=== PATIENT | female | born 1980 | race Caucasian/White ===

== ENCOUNTER → 2017-03-19 | Outpatient (CLI) | payer OTHER ==
[~2017-03-19] MED LIST: ALPR-475 PO; CALC0.5C PO; CALC600T23 PO; HYDR-3240 PO; LEVO125T PO; METH5TAB6 PO; SERT100T PO; SERT50TA PO
== END ==
LOC: STAR 16:00
PROVIDERS: ATTEND Surgery
DX: Z02.9 Encounter for administrative examinations, unspecified (principal)

== ENCOUNTER 2017-03-23 06:32 | Inpatient (IN) | payer MEDICAID, OTHER ==
[~2017-03-23] VITALS: Ht 152.4 cm; Wt 64.5 kg
[~2017-03-23 06:32] MED LIST changes: -CALC0.5C PO; -CALC600T23 PO; -HYDR-3240 PO; -LEVO125T PO
[2017-03-23] MEDS ORDERED: LACTATED RINGERS 1,000 ML IV SCH (07:31)
[2017-03-23 07:32] VITALS: BP 120/84
[2017-03-23 07:48] LABS: HCG UR LOT HCG7030192
[2017-03-23] MEDS ORDERED: MIDAZOLAM 1 MG/ML, 2ML ONE (07:48)
[2017-03-23] MEDS ORDERED: FENTANYL PF 250 MCG/5ML ONE (07:48)
[2017-03-23] MEDS ORDERED: ONDANSETRON 2MG/ML, 2ML ONE (07:49)
[2017-03-23] MEDS ORDERED: SUCCINYLCHOLINE 20 MG/ML, 10ML ONE (07:49)
[2017-03-23] MEDS ORDERED: CEFAZOLIN 1,000 MG ONE (07:49)
[2017-03-23] MEDS ORDERED: DEXAMETHASONE 4 MG/ML, 1ML ONE (07:49)
[2017-03-23] MEDS ORDERED: PROPOFOL 10 MG/ML, 20ML ONE (07:49)
[2017-03-23] MEDS ORDERED: LIDOCAINE 1%, 2ML SQ PRN (08:00)
[2017-03-23 08:10] LABS: HCG UR OBC PASS
[2017-03-23] MEDS ORDERED: SCOPOLAMINE 1MG PATCH TD ONE ×2 (08:42)
[2017-03-23] MEDS ORDERED: LIDOCAINE-MPF 2% ,5ML ONE ×2 (09:15)
[2017-03-23] MEDS ORDERED: EPHEDRINE 50 MG/ML, 1ML ONE (09:18)
[2017-03-23] MEDS ORDERED: MEPERIDINE/PF 25MG/0.5ML IVPush PRN (09:30)
[2017-03-23] MEDS ORDERED: PROMETHAZINE 25 MG/ML, 1ML IV PRN (09:30)
[2017-03-23] MEDS ORDERED: METOCLOPRAMIDE 5 MG/ML, 2ML IV PRN (09:30)
[2017-03-23] MEDS ORDERED: OXYcodone 5 MG/5 ML ORAL.SOL UDC PO PRN (09:30)
[2017-03-23] MEDS ORDERED: ONDANSETRON 2MG/ML, 2ML IVPush PRN (09:30)
[2017-03-23] MEDS ORDERED: ACETAMINOPHEN 325 MG TABLET PO PRN (09:30)
[2017-03-23] MEDS ORDERED: LORazepam 2 MG/ML, 1ML IVPush PRN (09:30)
[2017-03-23] MEDS ORDERED: LABETALOL 5MG/ML, 20ML IV PRN (09:30)
[2017-03-23] MEDS ORDERED: DIAZEPAM 5 MG/ML, 2ML IVPush PRN (09:30)
[2017-03-23] MEDS ORDERED: HYDROmorphone 1 MG/ML, 1ML IV PRN (09:30)
[2017-03-23] MEDS ORDERED: MIDAZOLAM 1 MG/ML, 2ML IV PRN (09:30)
[2017-03-23] MEDS ORDERED: hydrALAzine 20 MG/ML, 1ML IV PRN (09:30)
[2017-03-23] MEDS ORDERED: ALBUTEROL/IPRATROPIUM 2.5MG/0.5MG, 3 ML NPPB PRN (09:30)
[2017-03-23] MEDS ORDERED: MEPERIDINE/PF 25MG/0.5ML ONE (10:03)
[2017-03-23] MEDS ORDERED: FENTANYL PF 100 MCG/2ML ONE (10:03)
[2017-03-23] MEDS ORDERED: ACETAMINOPHEN 650 MG/20.3 ML UDC ONE (10:07)
[2017-03-23] MEDS ORDERED: OXYcodone 5 MG/5 ML ORAL.SOL UDC ONE (10:08)
[2017-03-23] MEDS: FENTANYL PF 100 MCG/2ML IV PRN ×2 (10:13→10:21)
[2017-03-23] MEDS ORDERED: HYDROmorphone 1 MG/ML, 1ML ONE (10:27)
[2017-03-23] MEDS: HYDROcodone/APAP 5/325 TABLET PO PRN ×3 (13:25→21:19)
[2017-03-23] MEDS: LACTATED RINGERS 1,000 ML IV SCH (13:25)
[2017-03-23 13:29] VITALS: BP 122/47
[2017-03-23] MEDS ORDERED: morphine SULFATE 10 MG/ML, 1ML IV PRN (13:30)
[2017-03-23] MEDS ORDERED: ONDANSETRON 2MG/ML, 2ML IV PRN (13:30)
[2017-03-23 18:41] VITALS: BP 109/55
[2017-03-24 00:21] VITALS: BP 103/58
[2017-03-24] MEDS: LACTATED RINGERS 1,000 ML IV SCH (00:54)
[2017-03-24] MEDS: HYDROcodone/APAP 5/325 TABLET PO PRN ×4 (01:26→14:27)
[2017-03-24 05:33] VITALS: BP 100/62
[2017-03-24] MEDS ORDERED: CALCIUM CARBONATE 500 MG TAB.CHEW PO ONE (07:00)
[2017-03-24] MEDS: CALCITRIOL 0.5 MCG CAPSULE PO SCH ×2 (07:00→09:34)
[2017-03-24 07:16] VITALS: BP 108/61
[2017-03-24] MEDS ORDERED: SERTRALINE 50MG TABLET PO SCH (09:00)
[2017-03-24] MEDS ORDERED: CALCIUM CARBONATE 500 MG TAB.CHEW PO SCH (11:00)
[2017-03-24] MEDS ORDERED: LEVO125T PO (13:44)
[2017-03-24] MEDS ORDERED: HYDR-3240 PO (13:45)
[2017-03-24] MEDS ORDERED: CALC0.5C9 PO (13:47)
[2017-03-24] MEDS ORDERED: CALC600T23 PO (13:49)
[2017-03-24 14:30] VITALS: BP 114/63
== END 2017-03-24 14:50 | disposition home or self-care (01) | DRG 626 ==
LOC: OUT 06:32 → 4NOR 11:03 → OUT 11:43
PROVIDERS: ADMIT Surgery; ATTEND Surgery
PROC: 0GSR0ZZ Reposition Parathyroid Gland, Open Approach (ICD-10-PCS; 2017-03-23)
PROC: 0GTK0ZZ Resection of Thyroid Gland, Open Approach (ICD-10-PCS; principal; 2017-03-23 09:15)
DX: E05.20 Thyrotoxicosis with toxic multinodular goiter without thyrotoxic crisis or storm (principal); E44.1 Mild protein-calorie malnutrition; F41.9 Anxiety disorder, unspecified; G47.9 Sleep disorder, unspecified; F12.90 Cannabis use, unspecified, uncomplicated; F17.210 Nicotine dependence, cigarettes, uncomplicated; Z68.27 Body mass index [BMI] 27.0-27.9, adult
CPT/HCPCS: 36415; 81025; 82040; 82310; 88307; 88333; J0690; J1100; J1170; J2175; J2250; J2405; J2704; J3010; J3490; C1760; J0330; J7120